=== PATIENT | female | born 1965 | race African-American/Black ===

== ENCOUNTER 2016-10-18 12:19 | Emergency (ER) | payer MEDICARE ==
[~2016-10-18] VITALS: Ht 160 cm; Wt 138.3 kg
[2016-10-18 12:44] VITALS: BP 154/70
[2016-10-18] MEDS ORDERED: HYDROcodone-ACET 10/325MG TAB PO ONE (14:15)
== END 2016-10-18 15:45 | disposition home or self-care (01) ==
LOC: ER 12:19
DX: M16.11 Unilateral primary osteoarthritis, right hip (principal); J44.9 Chronic obstructive pulmonary disease, unspecified; J45.909 Unspecified asthma, uncomplicated; E11.22 Type 2 diabetes mellitus with diabetic chronic kidney disease; I12.9 Hypertensive chronic kidney disease with stage 1 through stage 4 chronic kidney disease, or unspecified chronic kidney disease; N18.9 Chronic kidney disease, unspecified; Z88.1 Allergy status to other antibiotic agents; Z88.2 Allergy status to sulfonamides
CPT/HCPCS: 73502; 81002

== ENCOUNTER → 2016-11-15 | Outpatient (CLI) | payer MEDICARE ==
[2016-11-15 14:50] LABS: Basophils # (auto) 0.1 uL; Basophils % (auto) 0.6 % (0.0-2.0); CONDITION Y; Eosinophils # (auto) 0.2 uL; Eosinophils % (auto) 2.3 % (0.0-7.0); Hematocrit 38.1 % (36.0-46.0); Hemoglobin 12.3 g/dL (12.2-16.2); Lymphocytes # (auto) 2.6 uL; Lymphocytes % (auto) 26.5 % (10.0-50.0); Mean Corpuscular Hemoglobin 29.6 pg (28.0-32.0); Mean Corpuscular Hgb Conc. 32.3 g/dL (32.0-36.0); Mean Corpuscular Volume 91.7 fL (80.0-100.0); Mean Platelet Volume 8.9 fL (7.4-10.4); Monocytes # (auto) 0.6 uL; Monocytes % (auto) 6.6 % (0.0-12.0); Neutrophils # (auto) 6.2 uL; Platelet Count (auto) 322 10^3/uL (140-450); Red Cell Distribution Width 18.2 % (11.6-16.0); White Blood Cell 9.7 10^3/uL (4.4-10.8)
[2016-11-15 15:31] LABS: BUN/Creatinine Ratio 10.8; Bilirubin, Total 0.4 mg/dL (0.2-1.0); Calcium 9.2 mg/dL (8.5-10.1); Potassium 3.5 mmol/L (3.5-5.1); Total Protein 8.1 g/dL (6.4-8.2)
[2016-11-16 05:10] LABS: Thyroid Peroxidase (TPO) Ab 12 IU/mL (0-34)
== END | disposition home or self-care (01) ==
LOC: LAB 14:06
PROVIDERS: ATTEND Internal Medicine
DX: E11.9 Type 2 diabetes mellitus without complications (principal); I10 Essential (primary) hypertension
CPT/HCPCS: 36415; 80053; 80061; 82607; 83036; 84439; 84443; 85025; 85652; 86225; 86235